=== PATIENT | male | born 2000 | race American Indian/Alaskan Native ===

== ENCOUNTER 2018-03-19 21:45 | Emergency (ER) | payer OTHER ==
--- NOTE | 2018-03-19 22:51 | Cat Scan Report ---
FINAL REPORT PROCEDURE: CT HEAD/BRAIN WO CON TECHNIQUE: Computerized tomography of the head was performed without contrast material. HISTORY: head injury COMPARISON: No prior studies are available for comparison. FINDINGS: Skull and scalp: Normal. Paranasal sinuses: Normal. Ventricles and subarachnoid spaces: Normal. Cerebrum: No evidence of hemorrhage, acute infarction or mass . Cerebellum and brainstem: No evidence of hemorrhage, acute infarction or mass. Vasculature: Normal. Comments: None. IMPRESSION: Normal Examination
[2018-03-20] MEDS ORDERED: XYLOCAINE 1% MPF 5 mL INFILTRATI ONE ×2 (01:23→01:24)
[2018-03-20] MEDS ORDERED: BOOSTRIX IM ONE (01:24)
[2018-03-20] MEDS ORDERED: NORCO 5/325 PO ONE (01:24)
--- NOTE | 2018-03-20 01:30 | Emergency Department Report ---
ED Laceration HPI - HPI Chief Complaint: Laceration/Recheck/Suture Stated Complaint: HEAD INJURY Time Seen by Provider: 03/20/18 01:23 Location: Head Severity: moderate Tetanus Status: Not up to Date Laceration Symptoms: Yes Pain (6/10), No Foreign Body Sensation, No Numbness, No Weakness Other History: Patient presents for right eyebrow laceration s/p elbow to eye brow playing in basketball game tonight pt denies loc , bleeding controlled via direct pressure pt drove self to ed there is no vision loss no n/v no dizziness non lightheadedness pain is 6/10 right frontal at this time. ED Review of Systems ROS: Stated complaint: HEAD INJURY Other details as noted in HPI Constitutional: denies: chills, fever Eyes: denies: eye pain, eye discharge, vision change ENT: denies: ear pain, throat pain Respiratory: denies: cough, shortness of breath, wheezing Cardiovascular: denies: chest pain, palpitations Endocrine: no symptoms reported ED Past Medical Hx - Past Medical History Previous Medical History?: No - Surgical History Past Surgical History?: No - Social History Smoking Status: Never Smoker Substance Use Type: None - Medications Home Medications: Home Medications Medication Instructions Recorded Confirmed Last Taken Type traMADol [Ultram] 50 mg PO Q6HR PRN #12 tablet 03/20/18 Unknown Rx Laceration Physical Exam - Exam General: Vital signs noted. No distress. Alert and acting appropriately. Laceration Location: Head (right eyebrow) Laceration Exam: Yes Normal Distal CMS, No Foreign Body, No Exposed Tendon, Vessel, or Nerve, No Tendon Injury ED Course Vital Signs 03/19/18 22:01 Temperature 98.5 F Pulse Rate 81 Respiratory 16 Rate Blood Pressure 129/79 O2 Sat by Pulse 100 Oximetry - Laceration /Wound Repair Right Eye Wound Location: face Wound Length (cm): 1 Wound's Depth, Shape: superficial Wound Explored: clean Irrigated w/ Saline (ccs): 20 Betadine Prep?: Yes Anesthesia: Lidocaine w/ Epi Volume Anesthetic (ccs): 1 Wound Debrided: minimal Wound Repaired With: sutures Suture Size/Type: 6:0, 5:0 Number of Sutures: 5 Layer Closure?: No Sterile Dressing Applied?: Yes Progress: Right eyebrow laceration 1 cm irregular anesthesia 1% lidocaine plain and cleaned with Betadine solution and irrigated with 20 mL sterile saline and closed with 6.0 Prolene 5 sutures all related control sterile dressing applied patient given wound dressing care instructions headache reduced to 2/10 bleeding is controlled patient tolerated procedure with minimal distress ED Medical Decision Making - Radiology Data Radiology results: report reviewed, image reviewed ct normal no fracture no bleed - Medical Decision Making Right eyebrow laceration see procedure note all bleeding controlled patient tolerated procedure with minimal distress patient for DC to home in stable condition at this time, dc with rx for ultram , pt will follow up with pcp in 2- 3 days. return in 7-10 days for suture removal Critical care attestation.: If time is entered above; I have spent that time in minutes in the direct care of this critically ill patient, excluding procedure time. ED Disposition Clinical Impression: Eyebrow laceration Qualifiers: Encounter type: initial encounter Laterality: right Qualified Code(s): S01.111A - Laceration without foreign body of right eyelid and periocular area, initial encounter Disposition: DC-01 TO HOME OR SELFCARE Is pt being admited?: No Does the pt Need Aspirin: No Condition: Good Instructions: Suture Care (ED), Soft Tissue Foreign Body (ED) Prescriptions: traMADol [Ultram] 50 mg PO Q6HR PRN #12 tablet PRN Reason: Pain Referrals: [facility] [Outside] - 3-5 Days Forms: Work/School Release Form(ED) Time of Disposition: 02:26
[2018-03-20 02:54] VITALS: BP 121/74
== END 2018-03-20 02:53 | disposition home or self-care (01) ==
LOC: ED 21:45
DX: S01.111A Laceration without foreign body of right eyelid and periocular area, initial encounter (principal); W45.8XXA Other foreign body or object entering through skin, initial encounter; Y93.67 Activity, basketball; Y99.8 Other external cause status; Y92.89 Other specified places as the place of occurrence of the external cause
CPT/HCPCS: 70450; 90471; 90715; 99283